=== PATIENT | male | born 1990 | race Caucasian/White ===

== ENCOUNTER 2017-04-02 20:30 | Emergency (ER) | payer BC, OTHER ==
[2017-04-02 20:51] VITALS: BP 139/94
[2017-04-02] MEDS ORDERED: Penicillin V Potassium 500 MG Tab PO ONE (22:21)
[2017-04-02] MEDS ORDERED: Acetaminophen/HYDROcodone 325-5 MG Tab PO ONE (22:21)
--- NOTE | 2017-04-02 22:28 | EDM.PDOC ---
ED HPI GENERAL MEDICAL PROBLEM - General Chief Complaint: ENT Problem Stated Complaint: TOOTH PAIN Time Seen by Provider: 04/02/17 22:22 Source of Information: Reports: Patient History Limitations: Reports: No Limitations - History of Present Illness INITIAL COMMENTS - FREE TEXT/NARRATIVE: Patient presents to the ED complaining of pain to the left lower molar. Patient has extensive dental decay and is seeing a dentist tomorrow morning. He cannot make it through the evening without some form of pain medications. Left Lower Tooth/Teeth Pain Score (Numeric/FACES): 9 - Related Data Allergies Allergy/AdvReac Type Severity Reaction Status Date / Time No Known Allergies Allergy Verified 04/06/17 09:27 Home Meds: Home Meds Penicillin V Potassium [IJD: Penicillin V Potassium] 500 mg PO .EVERY 6 HOURS # 40 tab 04/02/17 [Rx] Past Medical History HEENT History: Reports: Impaired Vision Other HEENT History: Wears glasses Social & Family History - Tobacco Use Smoking Status *Q: Current Every Day Smoker Years of Tobacco use: 5 Packs/Tins Daily: 0.3 - Recreational Drug Use Recreational Drug Use: No ED ROS ENT - Review of Systems Review Of Systems: See Below Constitutional: Reports: Decreased Appetite. Denies: Fever HEENT: Reports: Dental Pain. Denies: Ear Pain, Throat Pain, Throat Swelling ED EXAM, ENT - Physical Exam Exam: See Below Exam Limited By: No Limitations General Appearance: Alert, WD/WN, No Apparent Distress Ears: Hearing Grossly Normal Nose: Normal Inspection Mouth/Throat: Other (No trismus. Extensive dental decay to the back lower left molar with swelling to the gumline present. Tooth is broken off at the gum line. No purulent drainage. ) Head: Atraumatic, Normocephalic. No: Facial Swelling, Facial Tenderness Neck: Normal Inspection, Supple, Full Range of Motion Respiratory/Chest: No Respiratory Distress, No Accessory Muscle Use Neurological: Alert, Oriented, CN II-XII Intact Psychiatric: Normal Affect, Normal Mood Skin: Warm, Dry, Intact, Normal Color Course - Vital Signs Last Recorded V/S: Last Vital Signs Temp Pulse 57 L 04/02/17 20:49 Resp 18 04/02/17 20:49 BP 139/94 H 04/02/17 20:49 Pulse Ox 99 04/02/17 20:49 - Orders/Labs/Meds Meds: Medications Discontinued Medications Generic Name Dose Route Start Last Admin Trade Name Jason PRN Reason Stop Dose Admin Hydrocodone Bitart/Acetaminophen 1 tab 04/02/17 22:21 04/02/17 22:35 Mccoll 325-5 Mg PO 04/02/17 22:22 1 tab ONETIME ONE Administration Penicillin V Potassium 500 mg 04/02/17 22:21 04/02/17 22:31 Veetids PO 04/02/17 22:22 500 mg ONETIME ONE Administration - Re-Assessments/Exams Free Text/Narrative Re-Assessment/Exam: Patient has findings concerning for dental abscess. He'll be seen by his dentist tomorrow at approximately 1:00. Ordered Mccoll one tab by mouth by mouth and also pen VK 500 mg by mouth. We'll discharge patient home with instructions as documented. Departure - Departure Time of Disposition: 22:25 Disposition: Home, Self-Care 01 Condition: Good Clinical Impression: Dental abscess, Dental caries, Dental caries extending into dentin, Pain, dental - Discharge Information Prescriptions: Penicillin V Potassium [IJD: Penicillin V Potassium] 500 mg PO .EVERY 6 HOURS # 40 tab Instructions: Dental Caries Referrals: PCP,None [Primary Care Provider] - Forms: ED Department Discharge Additional Instructions: No driving this evening since receiving a sedative medication while in the ED. No driving while taking the Mccoll. Take ibuprofen 600 mg every 6 hours and Tylenol 650 mg every 6 hours in alternating fashion. For severe pain take Mccoll one tab by mouth every 6 hours as needed. Do not take the Mccoll and Tylenol together. Complete full course of penicillin as prescribed. Keep appointment with dentist for tomorrow for definitive treatment. Return to the ED for any new or worsening symptoms.
== END 2017-04-02 22:45 | disposition home or self-care (01) ==
LOC: JD.ED 20:30
DX: K04.7 Periapical abscess without sinus (principal); K02.9 Dental caries, unspecified; F17.210 Nicotine dependence, cigarettes, uncomplicated
CPT/HCPCS: 99282; A9270; 99283

== ENCOUNTER 2017-04-06 09:16 | Emergency (ER) | payer OTHER ==
--- NOTE | 2017-04-06 09:25 | EDM.PDOC ---
ED HPI GENERAL MEDICAL PROBLEM - General Chief Complaint: ENT Problem Stated Complaint: TOOTH PAIN Time Seen by Provider: 04/06/17 09:24 Source of Information: Reports: Patient History Limitations: Reports: No Limitations - History of Present Illness INITIAL COMMENTS - FREE TEXT/NARRATIVE: 27-year-old male presents the ED with severe left lower mandibular pain due to a badly decayed and secondarily infected tooth. He was seen through the ED April 02 for the same problem and placed on Pen-Vee K 4 times a day and [place] tablets one every 4-6 hours. He was able to see the dentist but the dentist refused to take of the tooth at that time due to the infection. He states over the last 3 days things have gotten much worse. He can hardly open his mouth at all. He can't eat and it hurts to swallow. Severe pain left marcia-face. Sore throat. He feels weak and dizzy from not being able to keep up with food and fluid needs. Apparently has a left lower molar tooth it's unclear whether it's the first or second that is badly decayed in need of extraction. Onset: Gradual Onset Date: 03/31/17 Duration: Day(s):, Constant, Getting Worse Location: Reports: Face (Dental abscess) Quality: Reports: Ache, Throbbing Severity: Severe Improves with: Reports: None Worsens with: Reports: Other Context: Denies: Activity, Exercise (Trying to eat.), Lifting, Sick Contact, Trauma, Other Associated Symptoms: Reports: Malaise, Nausea/Vomiting (Mild nausea no vomiting) , Weakness, Other (Dizziness when standing). 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 Also on Pen-Vee K 4 times a day for infection for the last 3-1/2 days.) Left Lower Tooth/Teeth Pain Score (Numeric/FACES): 9 - Related Data Allergies Allergy/AdvReac Type Severity Reaction Status Date / Time No Known Allergies Allergy Verified 04/08/17 06:15 Home Meds: Home Meds Clindamycin HCl 300 mg PO QID #28 capsule 04/06/17 [Rx] oxyCODONE HCl/Acetaminophen [Percocet 5-325 mg Tablet] 1 - 2 each PO Q4H PRN # 20 tablet 04/06/17 [Rx] Past Medical History HEENT History: Reports: Impaired Vision Other HEENT History: Wears glasses Social & Family History - Tobacco Use Smoking Status *Q: Current Every Day Smoker Years of Tobacco use: 5 Packs/Tins Daily: 0.3 - Recreational Drug Use Recreational Drug Use: No - Living Situation & Occupation Living situation: Reports: Occupation: Employed ED ROS ENT - Review of Systems Review Of Systems: See Below Constitutional: Reports: Malaise, Weakness, Fatigue, Decreased Appetite, Weight Loss. Denies: Fever, Chills HEENT: Reports: Dental Pain (Unable to eat due to severe left-sided mandibular pain), Ear Pain ( as see history of present illness referred to the left ear ), Glasses, Throat Pain. Denies: Hearing Loss, Nosebleed, Nose Pain, Rhinitis, Sinus Problem, Throat Swelling, Vertigo Respiratory: Reports: No Symptoms Cardiovascular: Reports: No Symptoms Endocrine: Reports: No Symptoms GI/Abdominal: Reports: Decreased Appetite : Reports: No Symptoms Musculoskeletal: Reports: No Symptoms Skin: Reports: No Symptoms Neurological: Reports: No Symptoms Psychiatric: Reports: No Symptoms Hematologic/Lymphatic: Reports: No Symptoms ED EXAM, ENT - Physical Exam Exam: See Below Exam Limited By: Physical Impairment (Compare earlier open his mouth to speak. A severe trismus.) General Appearance: Moderate Distress, Other (Appears very tired.) Eye Exam: Bilateral Eye: Normal Inspection Ears: Normal External Exam, Normal TMs Mouth/Throat: Other (He has severe trismus with inability to open more than 1.5 cm in the midline. I can see marked erythema and swelling of the gingiva posteriorly on the left side. There is some suspicion clinically that it is spread to the peritonsillar space as well. I could not visualize the tonsil well enough to rule out a peritonsillar infection. It is unlikely based on history. Will review after proper pain medication.) Head: Atraumatic, Normocephalic Neck: Normal Inspection, Supple, Non-Tender. No: Lymphadenopathy (L), Lymphadenopathy (R) Respiratory/Chest: No Respiratory Distress, Lungs Clear, Normal Breath Sounds, No Accessory Muscle Use Cardiovascular: Normal Peripheral Pulses, Regular Rate, Rhythm, No Edema, No Gallop, No Murmur GI/Abdominal: Normal Bowel Sounds, Soft, Non-Tender, No Organomegaly Course - Vital Signs Last Recorded V/S: Last Vital Signs Temp 36.4 C 04/06/17 13:17 Pulse 70 04/06/17 13:50 Resp 16 04/06/17 13:50 BP 110/70 04/06/17 13:50 Pulse Ox 98 04/06/17 13:50 - Orders/Labs/Meds Labs: Laboratory Tests 04/06/17 04/06/17 Range/Units 10:00 10:15 WBC 8.94 (4.23-9.07) K/mm3 RBC 4.90 (4.63-6.08) M/mm3 Hgb 15.0 (13.7-17.5) gm/L Hct 44.5 (40.1-51.0) % MCV 90.8 (79.0-92.2) fl MCH 30.6 (25.7-32.2) pg MCHC 33.7 (32.2-35.5) g/dl RDW Std Deviation 43.0 (35.1-43.9) fL Plt Count 230 (163-337) K/mm3 MPV 9.7 (9.4-12.3) fl Neutrophils % (Manual) 74 H (40-60) % Band Neutrophils % 0 (0-10) % Lymphocytes % (Manual) 22 (20-40) % Atypical Lymphs % 0 % Monocytes % (Manual) 4 (2-10) % Eosinophils % (Manual) 0 L (0.8-7.0) % Basophils % (Manual) 0 L (0.2-1.2) Platelet Estimate Adequate RBC Morph Comment Normal Sodium 141 (136-145) mEq/L Potassium 4.3 (3.5-5.1) mEq/L Chloride 103 (98-107) mEq/L Carbon Dioxide 29 (21-32) mEq/L Anion Gap 13.3 (5-15) BUN 11 (7-18) mg/dL Creatinine 1.3 (0.7-1.3) mg/dL Est Cr Clr Drug Dosing 67.24 mL/min Estimated GFR (MDRD) > 60 (>60) mL/min BUN/Creatinine Ratio 8.5 L (14-18) Glucose 88 (74-106) mg/dL Calcium 9.7 (8.5-10.1) mg/dL Total Bilirubin 1.0 (0.2-1.0) mg/dL AST 19 (15-37) U/L ALT 37 (16-63) U/L Alkaline Phosphatase 165 H (46-116) U/L C-Reactive Protein 9.7 H* (<1.0) mg/dL Total Protein 7.5 (6.4-8.2) g/dl Albumin 3.9 (3.4-5.0) g/dl Globulin 3.6 gm/dL Albumin/Globulin Ratio 1.1 (1-2) Meds: Medications Discontinued Medications Generic Name Dose Route Start Last Admin Trade Name Marcq PRN Reason Stop Dose Admin Dexamethasone 10 mg 04/06/17 09:39 04/06/17 10:46 Dexamethasone IV 04/06/17 09:40 Not Given ONETIME ONE Dexamethasone 10 mg 04/06/17 10:30 04/06/17 10:43 Dexamethasone IV 04/06/17 10:31 10 mg ONETIME ONE Administration Hydromorphone HCl 1 mg 04/06/17 09:38 04/06/17 10:14 Dilaudid IVPUSH 04/06/17 09:39 1 mg ONETIME ONE Administration Dextrose/Sodium Chloride 1,000 mls @ 999 mls/hr 04/06/17 09:45 04/06/17 10:11 Dextrose 5%-Normal Saline IV 999 mls/hr ASDIRECTED RANDALL Administration Ceftriaxone Sodium 2 gm/ 100 mls @ 200 mls/hr 04/06/17 09:40 Sodium Chloride IV 04/06/17 10:09 ONETIME ONE Clindamycin Phosphate 900 mg/ 106 mls @ 100 mls/hr 04/06/17 09:45 04/06/17 10 :20 Sodium Chloride IV 04/06/17 10:48 100 mls/hr ONETIME ONE Administration Iopamidol 50 ml 04/06/17 11:31 04/06/17 11:45 Isovue-370 (76%) IVPUSH 04/06/17 11:32 50 ml ONETIME ONE Administration Ketorolac Tromethamine 30 mg 04/06/17 09:45 04/06/17 10:16 Toradol IVPUSH 30 mg ONETIME RANDALL Administration Ondansetron HCl 4 mg 04/06/17 09:39 04/06/17 10:04 Zofran IVPUSH 04/06/17 09:40 4 mg ONETIME ONE Administration Sodium Chloride 10 ml 04/06/17 11:31 04/06/17 11:45 Saline Flush FLUSH 04/06/17 11:32 10 ml ONETIME ONE Administration - Radiology Interpretation Free Text/Narrative:: 27-year-old male presents the ED with severe dental pain left lower mid mandibular molar tooth. I was unable to visualize which tooth. There is severe swelling and erythema of the posterior gingiva in this area but I cannot define a definitive abscess that would benefit from incision and drainage because of severe trismus. Plan IV D5 normal saline at open. Will give clindamycin 900 mg IV. Toradol 30 mg IV with Dilaudid 1 mg IV and Zofran 4 mg IV. Dexamethasone 10 mg will be given IV to reduce swelling as well. CBC CMP and CRP ordered. We'll review after pain medications been given and hopefully this will relieve some of his trismus so that I can better visualize the source of infection to see if incision and drainage can be performed. - Re-Assessments/Exams Free Text/Narrative Re-Assessment/Exam: 04/06/17 12:00: CT scan of the maxillofacial bones is been carried out with contrast. Radiologist comments on numerous dental caries and probable socket abscess noted within the posterior right maxillary molar with this more appearing in several pieces compare with fracture of the tooth. However our area of concern was left lower molar in the mandible. No soft tissue abscess was identified in this area either. Minimal mucosal thickening is appreciated both maxillary sinuses. Patient will be discharged home in clindamycin 300 mg 4 times daily for the next 7 days. I will send his records to Dr. Mateo Her maxillofacial surgeon and tentatively get him an appointment on a semiurgent basis for extraction of the tooth. Send him home on Percocet 5/3/25 milligram tablets one or 2 every 4-6 hours for pain relief along with Motrin 600 mg every 6 hours when necessary for pain relief. Departure - Departure Time of Disposition: 12:39 Disposition: Home, Self-Care 01 Condition: Fair Clinical Impression: Dental abscess - Discharge Information Prescriptions: Clindamycin HCl 300 mg PO QID #28 capsule oxyCODONE HCl/Acetaminophen [Percocet 5-325 mg Tablet] 1 - 2 each PO Q4H PRN # 20 tablet PRN Reason: pain relief. Instructions: Dental Abscess, [id number] Referrals: PCP,None [Primary Care Provider] - Forms: ED Department Discharge Additional Instructions: Evaluation in the emergency room today in regards to worsening problems with left lower molar dental abscess. Marked trismus with inability to open her mouth only about 1.5 cm. Therefore examination of the oral cavity was extremely difficult and I could not identify an area that I could leonidas to relieve abscess. Lab work revealed a normal white count but a smiled elevation in inflammatory markers suggestive of bacterial infection. CT scan of the maxillofacial bones and sinuses was carried out to identify that there was no evidence of abscess spread into the soft tissues involving the throat or behind the tonsil on the left side and none was found. The abscess is a localized to the multiple the fractured tooth on the left lower molar. You're treated with initial dose of metabolic clindamycin 900 mg intravenously. Also pain medications and antinausea medications were given as well as fluids to restore your hydration. Her lab test actually suggest you doing okay as far as hydration status. Treatment as an outpatient of course is to seek oral surgery and I will send her nose to Dr. Mateo Her's office was a maxillofacial surgeon in [place] for his perusal and hopefully they will contact her tomorrow for a formal appointment to have the tooth removed. In the meantime you 're to take clindamycin 300 mg tablets 4 times daily for the next week. Next tablet would be due at 4:00 today and then again before bed tonight. Continue Aleve 2 tablets every 8 hours to reduce pain and inflammation. Percocet tabs 01/01 one or 2 tablets every 4 hours as necessary for pain relief. Is very important at this tooth get removed as soon as possible.
[2017-04-06] MEDS ORDERED: HYDROmorphone 1 MG/ML Syringe IVPUSH ONE (09:38)
[2017-04-06] MEDS ORDERED: Ondansetron 4 MG/2 ML SDV IVPUSH ONE (09:39)
[2017-04-06] MEDS ORDERED: Dexamethasone 4 MG/ML 5 ML MDV IV ONE (09:39)
[2017-04-06] MEDS ORDERED: cefTRIAXone 2 GM in Sodium Chloride 0.9% 100 ML IV ONE (09:40)
[2017-04-06] MEDS ORDERED: Ketorolac 30 MG/ML SDV IVPUSH SCH (09:45)
[2017-04-06] MEDS ORDERED: Dextrose 5%-0.9% NaCl 1,000 ML IV SCH (09:45)
[2017-04-06] MEDS ORDERED: Clindamycin Phosphate 900 MG in Sodium Chloride 0.9% 100 ML IV ONE (09:45)
[2017-04-06] MEDS ORDERED: Dexamethasone 10 MG/ML SDV IV ONE (10:30)
[2017-04-06] MEDS ORDERED: Sodium Chloride 0.9% 10 ML Syringe FLUSH ONE (11:31)
[2017-04-06] MEDS ORDERED: Iopamidol 755 MG/ML 50 ML Bottle IVPUSH ONE (11:31)
--- NOTE | 2017-04-06 12:11 | CT ---
CT facial bones Technique: Multiple axial sections were obtained through the facial bones. Intravenous contrast was utilized. Reconstructed coronal and sagittal images were reviewed. Findings: Minimal mucosal thickening seen within portions of the maxillary sinus. Other sinuses are clear. No air-fluid levels are seen within the paranasal sinuses. Dental caries are noted on both sides. Lucency identified around the posterior right maxillary molar with fracturing of the tooth compatible with socket abscess. Mastoid sinuses are clear. Middle ear cavities are clear. No facial bone fracture is seen. No abnormal enhancement seen of the soft tissues. No soft tissue abscess is identified. Scattered lymph nodes are seen which are within normal limits in size. Impression: 1. Numerous dental caries. Probable socket abscess is noted within the posterior right maxillary molar with this molar appearing in several pieces compatible with fracture of the tooth. No soft tissue abscess is seen. 2. Mild mucosal thickening which is felt to be incidental within both maxillary sinuses. 3. No additional abnormality is identified on CT study of the facial bones. Diagnostic code #3
[2017-04-06 13:52] VITALS: BP 110/70
== END 2017-04-06 13:52 | disposition home or self-care (01) ==
LOC: JD.ED 09:16
DX: K04.7 Periapical abscess without sinus (principal); F17.210 Nicotine dependence, cigarettes, uncomplicated
CPT/HCPCS: 36415; 70487; 80053; 85025; 86140; 96365; 96375; 99284; J1100; J1170; J1885; J2405; J7030; J7042; J7050; Q9967

== ENCOUNTER 2017-04-08 06:07 | Emergency (ER) | payer OTHER ==
[2017-04-08 06:18] VITALS: BP 149/83
[2017-04-08] MEDS ORDERED: HYDROmorphone 1 MG/ML Syringe IVPUSH ONE (06:31)
[2017-04-08] MEDS ORDERED: Sodium Chloride 0.9% 10 ML Syringe FLUSH PRN (06:32)
[2017-04-08] MEDS ORDERED: Clindamycin Phosphate 600 MG in Sodium Chloride 0.9% 100 ML IV ONE (06:32)
--- NOTE | 2017-04-08 06:33 | EDM.PDOC ---
<Hood Wynn Tanika - Last Filed: 04/08/17 07:00> ED HPI GENERAL MEDICAL PROBLEM - General Chief Complaint: ENT Problem Stated Complaint: MOUTH PAIN, CAN'T EAT OR DRINK Time Seen by Provider: 04/08/17 06:18 Source of Information: Reports: Patient, RN Notes Reviewed - History of Present Illness INITIAL COMMENTS - FREE TEXT/NARRATIVE: 27-year-old male comes in with severe dental pain. This started about one week ago. He states he has one or 2 molars of the left lower jaw that of been fractured for quite some time. The pain has been worsening over the past week. He was first evaluated about 6 days ago, started on Pen-Vee K and I believe hydrocodone at that time. He was then seen here in the ED 2 days ago because of more severe pain, difficulty opening his mouth, eating. Labs and CT were done at that time. CT of face was also done which showed a probable socket abscesses on the right but no evidence for any type of abscess on the left. He was given clindamycin IV, Dilaudid and Toradol IV, discharged home on clindamycin 300 mg 3 times a day and also oral Percocet. He states he is been taken the antibiotic as prescribed. Also has been taking the pain pills. However his last pain pill was about 12 hours ago. When asked why he is returned here this morning he states he is wondering if it can be "cut open and drained" Left Lower Tooth/Teeth Pain Score (Numeric/FACES): 10 - Related Data Allergies Allergy/AdvReac Type Severity Reaction Status Date / Time No Known Allergies Allergy Verified 04/08/17 06:15 Home Meds: Home Meds Clindamycin HCl 300 mg PO QID #28 capsule 04/06/17 [Rx] oxyCODONE HCl/Acetaminophen [Percocet 5-325 mg Tablet] 1 - 2 each PO Q4H PRN # 20 tablet 04/06/17 [Rx] Ciprofloxacin HCl [Cipro] 500 mg PO BID #14 tablet 04/08/17 [Rx] oxyCODONE HCl/Acetaminophen [Percocet 5-325 mg Tablet] 1 - 2 each PO Q4H PRN # 20 tablet 04/08/17 [Rx] Past Medical History HEENT History: Reports: Impaired Vision Other HEENT History: Wears glasses Psychiatric History: Reports: None Oncologic (Cancer) History: Reports: None - Infectious Disease History Infectious Disease History: Reports: None - Past Surgical History HEENT Surgical History: Reports: Oral Surgery Social & Family History - Family History Family Medical History: Noncontributory - Tobacco Use Smoking Status *Q: Current Every Day Smoker Years of Tobacco use: 5 Packs/Tins Daily: 0.3 Second Hand Smoke Exposure: No - Caffeine Use Caffeine Use: Reports: Coffee - Recreational Drug Use Recreational Drug Use: No - Living Situation & Occupation Living situation: Reports: Occupation: Employed ED ROS ENT - Review of Systems Review Of Systems: See Below Constitutional: Denies: Fever HEENT: Reports: Dental Pain. Denies: Throat Pain Respiratory: Denies: Shortness of Breath GI/Abdominal: Denies: Abdominal Pain, Nausea, Vomiting Musculoskeletal: Reports: No Symptoms Skin: Reports: No Symptoms Neurological: Reports: No Symptoms ED EXAM, ENT - Physical Exam Exam: See Below General Appearance: Alert, Moderate Distress Eye Exam: Bilateral Eye: PERRL Mouth/Throat: Other (At time of initial exam unable to see inside his mouth. He only opens about 1 cm. ) Head: Facial Swelling (Mild left), Facial Tenderness (He does have tenderness of the left mandible laterally and inferiorly, no warmth or erythema at this time) Neck: Supple. No: Lymphadenopathy (L), Lymphadenopathy (R) Respiratory/Chest: No Respiratory Distress, Lungs Clear Cardiovascular: Regular Rate, Rhythm Extremities: Normal Inspection, Normal Range of Motion Neurological: Alert, Oriented, No Motor/Sensory Deficits Skin: Warm, Dry, Normal Color, No Rash Course - Vital Signs Last Recorded V/S: Last Vital Signs Temp 37.1 C 04/08/17 06:15 Pulse 51 L 04/08/17 06:15 Resp 18 04/08/17 06:15 BP 149/83 H 04/08/17 06:15 Pulse Ox 100 04/08/17 06:15 - Orders/Labs/Meds Orders: Active Orders 24 hr Category Date Time Status Peripheral IV Care [RC] . DIRECTED Care 04/08/17 06:32 Active Ketorolac [Toradol] Med 04/08/17 06:45 Active 30 mg IVPUSH ONETIME Sodium Chloride 0.9% [Saline Flush] Med 04/08/17 06:32 Active 10 ml FLUSH ASDIRECTED PRN Peripheral IV Insertion Adult [OM.PC] Stat Oth 04/08/17 06:31 Ordered Medication Orders Ketorolac Tromethamine (Toradol) 30 mg IVPUSH ONETIME RANDALL Last Admin: 04/08/17 06:46 Dose: 30 mg Sodium Chloride (Saline Flush) 10 ml FLUSH ASDIRECTED PRN PRN Reason: Keep Vein Open Last Admin: 04/08/17 06:53 Dose: 10 ml Labs: Laboratory Tests 04/08/17 04/08/17 Range/Units 06:41 06:41 WBC 12.10 H (4.23-9.07) K/mm3 RBC 4.93 (4.63-6.08) M/mm3 Hgb 15.1 (13.7-17.5) gm/L Hct 45.5 (40.1-51.0) % MCV 92.3 H (79.0-92.2) fl MCH 30.6 (25.7-32.2) pg MCHC 33.2 (32.2-35.5) g/dl RDW Std Deviation 44.0 H (35.1-43.9) fL Plt Count 274 (163-337) K/mm3 MPV 9.5 (9.4-12.3) fl Neut % (Auto) 73.3 H (34.0-67.9) % Lymph % (Auto) 17.1 L (21.8-53.1) % [place] % (Auto) 8.9 (5.3-12.2) % Eos % (Auto) 0.3 L (0.8-7.0) Baso % (Auto) 0.1 (0.1-1.2) % Neut # (Auto) 8.86 H (1.78-5.38) K/mm3 Lymph # (Auto) 2.07 (1.32-3.57) K/mm3 [place] # (Auto) 1.08 H (0.30-0.82) K/mm3 Eos # (Auto) 0.04 (0.04-0.54) K/mm3 Baso # (Auto) 0.01 (0.01-0.08) K/mm3 C-Reactive Protein 9.2 H* (<1.0) mg/dL Meds: Medications Generic Name Dose Route Start Last Admin Trade Name Freq PRN Reason Stop Dose Admin Ketorolac Tromethamine 30 mg 04/08/17 06:45 04/08/17 06:46 Toradol IVPUSH 30 mg ONETIME RANDALL Administration Sodium Chloride 10 ml 04/08/17 06:32 04/08/17 06:53 Saline Flush FLUSH 10 ml ASDIRECTED PRN Administration Keep Vein Open Discontinued Medications Generic Name Dose Route Start Last Admin Trade Name Marcq PRN Reason Stop Dose Admin Hydromorphone HCl 1 mg 04/08/17 06:31 04/08/17 06:51 Dilaudid IVPUSH 04/08/17 06:32 1 mg ONETIME ONE Administration Clindamycin Phosphate 600 mg/ 104 mls @ 100 mls/hr 04/08/17 06:32 04/08/17 06 :53 Sodium Chloride IV 04/08/17 07:34 100 mls/hr ONETIME ONE Administration - Re-Assessments/Exams Free Text/Narrative Re-Assessment/Exam: 04/08/17 07:01 Change of shift, awaiting labs, IV pain meds have been ordered that may help to get a better view. Have discussed with Dr Real who did see him 2 days ago, aware of his presentation at that time. He will likely need referreral to Oral Surgery. He will work on that. Will transfer care to Dr Real at this time. Departure - Departure Disposition: Home, Self-Care 01 Clinical Impression: Dental abscess - Discharge Information Prescriptions: Ciprofloxacin HCl [Cipro] 500 mg PO BID #14 tablet oxyCODONE HCl/Acetaminophen [Percocet 5-325 mg Tablet] 1 - 2 each PO Q4H PRN # 20 tablet PRN Reason: pain relief. Forms: ED Department Discharge <Konstantin Real - Last Filed: 04/08/17 08:29> Course - Re-Assessments/Exams Free Text/Narrative Re-Assessment/Exam: 04/08/17 08:25 care has been assumed from Dr. Wynn at change of shift. I had seen this young man the day prior with presumed dental infection although I have some concerns that there is more serious spread of infection to the oropharyngeal posterior pharyngeal structures. No signs of significant infection were identified on CT done 2 days ago. The patient is certainly no better and perhaps worse than he was 48 hours ago. Still has severe trismus with inability to open his mouth more than about 1.5 cm in the midline. Examination of the area almost impossible. He is completed another dose of clindamycin 600 mg IV. I've advised him to travel to [facility] emergency room today for emergent consultation either with maxillofacial surgeon or ENT. Will place him on Cipro 500 mg twice daily in the interim. Also refilled Percocet 20 tablets of 5/325 milligrams strength for pain relief. Is reporting now that he can barely swallow fluids. He has completed a full liter of IV fluids and clindamycin as above. Nothing further can be done here and I did speak with Dr. Her's office and he had been offered an appointment but was leery of the financial burden at this point placed upon him to have consultation carried out by Dr. Her. Departure - Departure Time of Disposition: 08:23 Condition: Serious
[2017-04-08] MEDS ORDERED: Ketorolac 30 MG/ML SDV IVPUSH SCH (06:45)
== END 2017-04-08 08:50 | disposition home or self-care (01) ==
LOC: JD.ED 06:07
DX: K04.7 Periapical abscess without sinus (principal); F17.210 Nicotine dependence, cigarettes, uncomplicated
CPT/HCPCS: 36415; 85025; 86140; 96365; 96375; 99283; J1170; J1885; J7030; J7050; 99284